=== PATIENT | female | born 1960 | race Caucasian/White ===

== ENCOUNTER 2017-07-17 10:16 | Emergency (ER) | payer BC ==
[~2017-07-17] VITALS: Ht 165.1 cm; Wt 56.8 kg
[~2017-07-17 10:16] MED LIST: AZIT-12 PO; PRED20TA PO; PROAAER10 INH
[2017-07-17 10:17] VITALS: BP 207/98
[2017-07-17] MEDS ORDERED: PRED5SOL10 PO (11:04)
[2017-07-17] MEDS ORDERED: CLON0.5T PO (11:14)
[2017-07-22] MEDS ORDERED: LISI-538 PO (13:56)
[2017-07-22] MEDS ORDERED: XANA0.25 PO (13:56)
== END 2017-07-17 11:31 | disposition home or self-care (01) ==
LOC: M ED 10:16
DX: K13.79 Other lesions of oral mucosa (principal); F41.9 Anxiety disorder, unspecified; F17.200 Nicotine dependence, unspecified, uncomplicated

== ENCOUNTER → 2019-01-30 | Outpatient (REF) | payer BC, MEDICAID ==
[~2019-01-30] MED LIST changes: +CLON0.5T8 PO; +LISI-538 PO; +PRED5SOL10 PO; +XANA0.25 PO
[2019-01-30 13:00] LABS: BASO # 0.1 10^3/uL (0.0-0.2); EOS # 0.1 10^3/uL (0.0-0.50); HEMATOCRIT 44.4 % (36.0-47.0); HEMOGLOBIN 14.8 g/dl (12.0-15.5); LYMPH # 1.7 10^3/uL (1.5-4.5); LYMPH % 29.5 % (24.0-44.0); MEAN CORPUSCULAR HEMOGLOBIN 31.6 pg (27.0-33.0); MEAN CORPUSCULAR HGB CONC 33.3 g/dl (32.0-36.5); MEAN CORPUSCULAR VOLUME 94.7 fl (80.0-96.0); MONO # 0.3 10^3/uL (0.0-0.8); MONO % 5.5 % (0.0-5.0); NEUTROPHILS # 3.7 10^3/uL (1.8-7.7); NEUTROPHILS % 62.8 % (36.0-66.0); PLATELET COUNT, AUTOMATED 259 10^3/uL (150-450); RED BLOOD COUNT 4.69 10^6/uL (4.00-5.40); WHITE BLOOD COUNT 5.9 10^3/uL (4.0-10.0)
[2019-01-30 14:00] LABS: ALBUMIN 3.6 GM/DL (3.2-5.2); ALT/SGPT 35 U/L (12-78); BILIRUBIN,TOTAL 0.5 MG/DL (0.2-1.0); BLOOD UREA NITROGEN 9 MG/DL (7-18); CALCIUM LEVEL 8.5 MG/DL (8.8-10.2); CARBON DIOXIDE LEVEL 26 MEQ/L (21-32); CHLORIDE LEVEL 108 MEQ/L (98-107); CHOLESTEROL LEVEL 225 MG/DL (<200); CHOLESTEROL RISK RATIO 2.122 (<5); CREATININE FOR GFR 0.58 MG/DL (0.55-1.30); GLOMERULAR FILTRATION RATE > 60.0 (>45); GLUCOSE, FASTING 85 MG/DL (70-100); HDL CHOLESTEROL 106 MG/DL (>40); LDL CHOLESTEROL 110 MG/DL (<100); NON-HDL-C 119 MG/DL; POTASSIUM SERUM 4.3 MEQ/L (3.5-5.1); SODIUM LEVEL 139 MEQ/L (136-145); TOTAL 25(OH) VITAMIN D 15.3 NG/ML (30.0-100.0); TOTAL PROTEIN 6.8 GM/DL (6.4-8.2); TRIGLYCERIDES LEVEL 44 MG/DL (<150)
[2019-01-30 14:35] LABS: HEMOGLOBIN A1c 5.1 %
== END ==
LOC: M LAB REF 12:38
PROVIDERS: ATTEND Nurse Practitioner Adult Health
DX: Z13.9 Encounter for screening, unspecified (principal)

== ENCOUNTER → 2020-04-23 | Outpatient (REF) | payer OTHER ==
[~2020-04-23] MED LIST changes: +CLON0.5T2 PO; -CLON0.5T8 PO
[2020-05-22 10:05] LABS: BASO # 0.1 10^3/uL (0.0-0.2); BASO % 0.6 % (0.0-1.0); EOS # 0.1 10^3/uL (0.0-0.5); EOS % 0.6 % (0.0-3.0); HEMATOCRIT 44.5 % (36.0-47.0); HEMOGLOBIN 14.9 g/dl (12.0-15.5); LYMPH # 2.3 10^3/uL (1.5-5.0); LYMPH % 25.9 % (24.0-44.0); MEAN CORPUSCULAR HGB CONC 33.5 g/dl (32.0-36.5); MEAN CORPUSCULAR VOLUME 95.7 fl (80.0-96.0); MONO # 0.5 10^3/uL (0.0-0.8); MONO % 5.6 % (0.0-5.0); NEUTROPHILS # 5.9 10^3/uL (1.5-8.5); NEUTROPHILS % 67.1 % (36.0-66.0); PLATELET COUNT, AUTOMATED 248 10^3/uL (150-450); RED BLOOD COUNT 4.65 10^6/uL (4.00-5.40); WHITE BLOOD COUNT 8.7 10^3/uL (4.0-10.0)
[2020-06-21 15:48] LABS: ALBUMIN 4.3 GM/DL (3.2-5.2); ALT/SGPT 31 U/L (12-78); BILIRUBIN,TOTAL 0.5 MG/DL (0.2-1.0); BLOOD UREA NITROGEN 10 MG/DL (7-18); CALCIUM LEVEL 9.4 MG/DL (8.8-10.2); CARBON DIOXIDE LEVEL 29 MEQ/L (21-32); CHLORIDE LEVEL 107 MEQ/L (98-107); CHOLESTEROL LEVEL 247 MG/DL (<200); CHOLESTEROL RISK RATIO 2.225 (<5); CREATININE FOR GFR 0.77 MG/DL (0.55-1.30); FREE T4 0.99 NG/DL (0.76-1.46); GLOMERULAR FILTRATION RATE > 60.0 (>45); GLUCOSE, FASTING 93 MG/DL (70-100); HDL CHOLESTEROL 111 MG/DL (>40); HEMOGLOBIN A1c 4.8 %; LDL CHOLESTEROL 125 MG/DL (<100); NON-HDL-C 136 MG/DL; POTASSIUM SERUM 4.2 MEQ/L (3.5-5.1); SODIUM LEVEL 141 MEQ/L (136-145); TOTAL PROTEIN 6.9 GM/DL (6.4-8.2); TRIGLYCERIDES LEVEL 57 MG/DL (<150)
== END ==
LOC: M LAB REF 07:41
PROVIDERS: ATTEND Nurse Practitioner Adult Health
DX: Z13.9 Encounter for screening, unspecified (principal)

== ENCOUNTER → 2022-10-15 | Outpatient (REF) | payer OTHER, MEDICAID ==
[~2022-10-15] MED LIST changes: -LISI-538 PO; +LISI20TA33 PO
[2022-10-15 17:00] LABS: CHOLESTEROL RISK RATIO 1.77 (<5); HDL CHOLESTEROL 107.7 MG/DL (>40); LDL CHOLESTEROL 73.9 MG/DL (<100)
== END ==
LOC: M LAB REF 16:20
PROVIDERS: ATTEND Nurse Practitioner Family
DX: E78.00 Pure hypercholesterolemia, unspecified (principal)

== ENCOUNTER → 2023-03-09 | Outpatient (REF) | payer OTHER, MEDICAID ==
[~2023-03-09] MED LIST changes: +PRED15SO24 PO; -PRED5SOL10 PO
[2023-03-09 14:30] LABS: BASO % 0.5 % (0.0-1.0); EOS # 0.1 10^3/uL (0.0-0.5); EOS % 0.6 % (0.0-3.0); HEMATOCRIT 41.2 % (36.0-47.0); HEMOGLOBIN 13.9 g/dl (12.0-15.5); LYMPH # 2.7 10^3/uL (1.5-5.0); LYMPH % 33.1 % (24.0-44.0); MEAN CORPUSCULAR HEMOGLOBIN 31.6 pg (27.0-33.0); MEAN CORPUSCULAR HGB CONC 33.7 g/dl (32.0-36.5); MEAN CORPUSCULAR VOLUME 93.6 fl (80.0-96.0); MONO # 0.3 10^3/uL (0.0-0.8); MONO % 3.9 % (2.0-8.0); NEUTROPHILS # 5.1 10^3/uL (1.5-8.5); NEUTROPHILS % 61.3 % (36.0-66.0); PLATELET COUNT, AUTOMATED 253 10^3/uL (150-450); WHITE BLOOD COUNT 8.2 10^3/uL (4.0-10.0)
[2023-03-09 14:36] LABS: ALKALINE PHOSPHATASE 73 U/L (46-116); ALT/SGPT 28 U/L (7.0-40); AST/SGOT 21 U/L (<34); BILIRUBIN,TOTAL 0.7 MG/DL (0.3-1.2); BLOOD UREA NITROGEN 13 MG/DL (9-23); CALCIUM LEVEL 8.8 MG/DL (8.3-10.6); CARBON DIOXIDE LEVEL 26 MMOL/L (20-31); CHLORIDE LEVEL 106 MMOL/L (98-107); CHOLESTEROL LEVEL 196 MG/DL (<200); CHOLESTEROL RISK RATIO 1.83 (<5); GLOMERULAR FILTRATION RATE > 60.0 (>45); GLUCOSE, FASTING 90 MG/DL (74-106); LDL CHOLESTEROL 78.6 MG/DL (<100); POTASSIUM SERUM 4.5 MMOL/L (3.5-5.1); SODIUM LEVEL 137 MMOL/L (136-145); THYROID STIMULATING HORMONE 1.123 uIU/ML (0.55-4.78); TOTAL PROTEIN 6.3 G/DL (5.7-8.2); TRIGLYCERIDES LEVEL 52 MG/DL (<150)
[2023-03-09 14:37] LABS: TOTAL 25(OH) VITAMIN D 26.9 NG/ML (20.0-100.0)
[2023-03-09 15:43] LABS: HEMOGLOBIN A1c 4.9 % (4.0-6.0)
== END ==
LOC: M LAB REF 12:28
PROVIDERS: ATTEND Nurse Practitioner Family
DX: Z13.228 Encounter for screening for other metabolic disorders (principal)

== ENCOUNTER → 2023-06-07 | Outpatient (REF) | payer OTHER, MEDICAID ==
[2023-06-07 13:42] LABS: BASO # 0.1 10^3/uL (0.0-0.2); BASO % 0.6 % (0.0-1.0); EOS % 0.4 % (0.0-3.0); HEMATOCRIT 42.9 % (36.0-47.0); HEMOGLOBIN 14.4 g/dl (12.0-15.5); LYMPH # 3.2 10^3/uL (1.5-5.0); MEAN CORPUSCULAR HEMOGLOBIN 31.7 pg (27.0-33.0); MEAN CORPUSCULAR HGB CONC 33.6 g/dl (32.0-36.5); MEAN CORPUSCULAR VOLUME 94.5 fl (80.0-96.0); MONO # 0.6 10^3/uL (0.0-0.8); MONO % 6.3 % (2.0-8.0); NEUTROPHILS # 5.5 10^3/uL (1.5-8.5); NEUTROPHILS % 58.4 % (36.0-66.0); PLATELET COUNT, AUTOMATED 259 10^3/uL (150-450); RED BLOOD COUNT 4.54 10^6/uL (4.00-5.40); WHITE BLOOD COUNT 9.4 10^3/uL (4.0-10.0)
[2023-06-07 14:01] LABS: HEMOGLOBIN A1c 4.4 % (4.0-6.0)
[2023-06-07 14:16] LABS: THYROID STIMULATING HORMONE 1.796 uIU/ML (0.55-4.78); TOTAL 25(OH) VITAMIN D 29.6 NG/ML (20.0-100.0)
[2023-06-07 14:24] LABS: ALBUMIN 4.1 G/DL (3.2-5.2); ALKALINE PHOSPHATASE 71 U/L (46-116); ALT/SGPT 32 U/L (7.0-40); AST/SGOT 21 U/L (<34); BILIRUBIN,TOTAL 0.7 MG/DL (0.3-1.2); BLOOD UREA NITROGEN 15 MG/DL (9-23); CALCIUM LEVEL 9.2 MG/DL (8.3-10.6); CARBON DIOXIDE LEVEL 25 MMOL/L (20-31); CHLORIDE LEVEL 106 MMOL/L (98-107); CHOLESTEROL LEVEL 198 MG/DL (<200); CHOLESTEROL RISK RATIO 1.92 (<5); CREATININE FOR GFR 0.65 MG/DL (0.55-1.30); GLOMERULAR FILTRATION RATE > 60.0 (>45); GLUCOSE, FASTING 95 MG/DL (74-106); HDL CHOLESTEROL 102.7 MG/DL (>40); LDL CHOLESTEROL 82.9 MG/DL (<100); NON-HDL-C 95.3 MG/DL; POTASSIUM SERUM 4.6 MMOL/L (3.5-5.1); SODIUM LEVEL 140 MMOL/L (136-145); TOTAL PROTEIN 6.5 G/DL (5.7-8.2); TRIGLYCERIDES LEVEL 62 MG/DL (<150)
== END ==
LOC: M LAB REF 11:41
PROVIDERS: ATTEND Nurse Practitioner Family
DX: Z13.228 Encounter for screening for other metabolic disorders (principal)

== ENCOUNTER → 2024-07-02 | Outpatient (REF) | payer OTHER, MEDICAID ==
[2024-07-02 14:43] LABS: BASO % 0.5 % (0.0-1.0); EOS # 0.1 10^3/uL (0.0-0.5); EOS % 0.9 % (0.0-3.0); HEMATOCRIT 43.6 % (36.0-47.0); HEMOGLOBIN 14.8 g/dl (12.0-15.5); LYMPH % 46.1 % (24.0-44.0); MEAN CORPUSCULAR HEMOGLOBIN 31.6 pg (27.0-33.0); MEAN CORPUSCULAR HGB CONC 33.9 g/dl (32.0-36.5); MEAN CORPUSCULAR VOLUME 93.2 fl (80.0-96.0); MONO # 0.3 10^3/uL (0.0-0.8); MONO % 3.4 % (2.0-8.0); NEUTROPHILS # 4.2 10^3/uL (1.5-8.5); NEUTROPHILS % 48.8 % (36.0-66.0); PLATELET COUNT, AUTOMATED 294 10^3/uL (150-450); RED BLOOD COUNT 4.68 10^6/uL (4.00-5.40); WHITE BLOOD COUNT 8.6 10^3/uL (4.0-10.0)
[2024-07-02 15:10] LABS: HEMOGLOBIN A1c 4.7 % (4.0-6.0)
[2024-07-02 15:16] LABS: ALBUMIN 3.7 G/DL (3.2-5.2); ALKALINE PHOSPHATASE 99 U/L (46-116); ALT/SGPT 20 U/L (7.0-40); AST/SGOT 9 U/L (<34); BILIRUBIN,TOTAL 0.6 MG/DL (0.3-1.2); BLOOD UREA NITROGEN 6 MG/DL (9-23); CALCIUM LEVEL 9.6 MG/DL (8.3-10.6); CARBON DIOXIDE LEVEL 28 MMOL/L (20-31); CHLORIDE LEVEL 102 MMOL/L (98-107); CHOLESTEROL LEVEL 195 MG/DL (<200); CHOLESTEROL RISK RATIO 2.05 (<5); CREATININE FOR GFR 0.44 MG/DL (0.55-1.30); GLOMERULAR FILTRATION RATE > 60.0 (>45); GLUCOSE, FASTING 86 MG/DL (74-106); HDL CHOLESTEROL 94.8 MG/DL (>40); LDL CHOLESTEROL 83.6 MG/DL (<100); MAGNESIUM LEVEL 1.8 MG/DL (1.8-2.4); NON-HDL-C 100.2 MG/DL; POTASSIUM SERUM 4.9 MMOL/L (3.5-5.1); SODIUM LEVEL 132 MMOL/L (136-145); TOTAL PROTEIN 6.6 G/DL (5.7-8.2); TRIGLYCERIDES LEVEL 83 MG/DL (<150)
[2024-07-02 15:19] LABS: THYROID STIMULATING HORMONE 1.147 uIU/ML (0.55-4.78); TOTAL 25(OH) VITAMIN D 23.6 NG/ML (20.0-100.0)
== END ==
LOC: M LAB REF 12:36
PROVIDERS: ATTEND Nurse Practitioner Family
DX: R63.6 Underweight (principal); E55.9 Vitamin D deficiency, unspecified

== ENCOUNTER → 2024-07-25 | Outpatient (REF) | payer OTHER, MEDICAID ==
[2024-07-25 14:48] LABS: ALBUMIN 3.8 G/DL (3.2-5.2); ALKALINE PHOSPHATASE 89 U/L (35-104); ALT/SGPT 37 U/L (7.0-40); AST/SGOT 18 U/L (<34); BILIRUBIN,TOTAL 0.5 MG/DL (0.3-1.2); BLOOD UREA NITROGEN 10 MG/DL (9-23); CALCIUM LEVEL 9.6 MG/DL (8.3-10.6); CARBON DIOXIDE LEVEL 26 MMOL/L (20-31); CHLORIDE LEVEL 102 MMOL/L (98-107); CREATININE FOR GFR 0.56 MG/DL (0.55-1.30); GLOMERULAR FILTRATION RATE > 60.0 (>45); GLUCOSE, FASTING 90 MG/DL (74-106); POTASSIUM SERUM 4.5 MMOL/L (3.5-5.1); SODIUM LEVEL 131 MMOL/L (136-145); TOTAL PROTEIN 6.6 G/DL (5.7-8.2)
== END ==
LOC: M LAB REF 13:37
PROVIDERS: ATTEND Nurse Practitioner Family
DX: R63.6 Underweight (principal)

== ENCOUNTER → 2025-01-14 | Outpatient (REF) | payer OTHER, MEDICAID ==
[2025-01-14 18:26] LABS: ALBUMIN 3.8 G/DL (3.2-5.2); ALKALINE PHOSPHATASE 108 U/L (35-104); ALT/SGPT 26 U/L (7.0-40); AST/SGOT 16 U/L (<34); BILIRUBIN,TOTAL 0.5 MG/DL (0.3-1.2); BLOOD UREA NITROGEN 7 MG/DL (9-23); CALCIUM LEVEL 9.7 MG/DL (8.3-10.6); CARBON DIOXIDE LEVEL 26 MMOL/L (20-31); CHLORIDE LEVEL 91 MMOL/L (98-107); CREATININE FOR GFR 0.47 MG/DL (0.55-1.30); GLOMERULAR FILTRATION RATE > 90.0 (>45); GLUCOSE, FASTING 84 MG/DL (74-106); POTASSIUM SERUM 4.5 MMOL/L (3.5-5.1); SODIUM LEVEL 124 MMOL/L (136-145); TOTAL PROTEIN 6.8 G/DL (5.7-8.2)
== END ==
LOC: M LAB REF 17:28
PROVIDERS: ATTEND Nurse Practitioner Family
DX: E87.1 Hypo-osmolality and hyponatremia (principal)

== ENCOUNTER → 2025-01-18 | Outpatient (CLI) | payer MEDICARE, OTHER ==
[2025-01-18 11:26] LABS: SODIUM,RANDOM URINE 73 MMOL/L
== END ==
LOC: M LAB 09:49
PROVIDERS: ATTEND Nurse Practitioner Family
DX: E87.1 Hypo-osmolality and hyponatremia (principal)

== ENCOUNTER 2025-01-24 18:27 | Observation (INO) | payer MEDICARE, OTHER ==
[~2025-01-24] VITALS: Ht 162.6 cm; Wt 53.2 kg
[~2025-01-24 18:27] MED LIST changes: -AMLO1TAB24 PO; -ATOR1TAB21 PO; -FLUTISP; -LISI40TA4 PO; -TRAZ-186 PO; -VITA200032 PO
[2025-01-24] MEDS ORDERED: VITA200032 PO (18:44)
[2025-01-24] MEDS ORDERED: ATOR1TAB21 PO (18:44)
[2025-01-24] MEDS ORDERED: TRAZ-186 PO (18:44)
[2025-01-24] MEDS ORDERED: LISI40TA4 PO (18:44)
[2025-01-24 20:41] LABS: OSMOLALITY SERUM 252 MOSM/KG (280-301)
[2025-01-24 20:47] LABS: BLOOD UREA NITROGEN 7 MG/DL (9-23); CALCIUM LEVEL 8.8 MG/DL (8.3-10.6); CARBON DIOXIDE LEVEL 26 MMOL/L (20-31); CHLORIDE LEVEL 89 MMOL/L (98-107); CREATININE FOR GFR 0.43 MG/DL (0.55-1.30); GLOMERULAR FILTRATION RATE > 90.0 (>45); GLUCOSE, FASTING 123 MG/DL (74-106); MAGNESIUM LEVEL 1.5 MG/DL (1.8-2.4); PHOSPHORUS LEVEL 4.3 MG/DL (2.4-5.1); POTASSIUM SERUM 4.2 MMOL/L (3.5-5.1); SODIUM LEVEL 121 MMOL/L (136-145)
[2025-01-24 20:49] LABS: SODIUM,RANDOM URINE 22 MMOL/L
[2025-01-24] MEDS ORDERED: NS (Normal Saline) 0.9% 1,000 ML IV SCH (21:35)
[2025-01-24] MEDS ORDERED: CLON0.5T2 PO (22:00)
[2025-01-24] MEDS ORDERED: FLUTISP (22:00)
[2025-01-24] MEDS ORDERED: AMLO1TAB24 PO (22:02)
[2025-01-24] MEDS ORDERED: HOME MED LIST COMPLETE! XX SCH (22:05)
[2025-01-24] MEDS: MAG SULF 1GM/100ML (MAG RUN) 1 GM in IV 1 EA IV ONE (23:08)
[2025-01-25] MEDS ORDERED: LORazepam 2 MG TAB PO PRN (00:10)
[2025-01-25 01:31] VITALS: BP 146/67; TEMP 98.2; O2SAT 94
[2025-01-25] MEDS ORDERED: FLUTICASONE PROP 0.05% NASAL SPRAY 16 GM (FLONASE) PRN ×2 (01:40→01:52)
[2025-01-25] MEDS ORDERED: PILL CUTTER 1 EACH XX PRN (01:55)
[2025-01-25] MEDS: traZODone 50 MG TAB PO PRN (02:11)
[2025-01-25 03:51] VITALS: BP 112/57; TEMP 97.8; O2SAT 97
[2025-01-25 04:00] VITALS: BP 112/57
[2025-01-25 05:20] LABS: HEMATOCRIT 32.1 % (36.0-47.0); HEMOGLOBIN 11.7 g/dl (12.0-15.5); MEAN CORPUSCULAR HEMOGLOBIN 31.6 pg (27.0-33.0); MEAN CORPUSCULAR HGB CONC 36.4 g/dl (32.0-36.5); MEAN CORPUSCULAR VOLUME 86.8 fl (80.0-96.0); PLATELET COUNT, AUTOMATED 283 10^3/uL (150-450); WHITE BLOOD COUNT 7.9 10^3/uL (4.0-10.0)
[2025-01-25 05:42] LABS: BLOOD UREA NITROGEN 7 MG/DL (9-23); CALCIUM LEVEL 8.4 MG/DL (8.3-10.6); CARBON DIOXIDE LEVEL 26 MMOL/L (20-31); CHLORIDE LEVEL 95 MMOL/L (98-107); CHOLESTEROL LEVEL 171 MG/DL (<200); CHOLESTEROL RISK RATIO 1.78 (<5); CREATININE FOR GFR 0.41 MG/DL (0.55-1.30); GLOMERULAR FILTRATION RATE > 90.0 (>45); GLUCOSE, FASTING 99 MG/DL (74-106); LDL CHOLESTEROL 66.8 MG/DL (<100); MAGNESIUM LEVEL 1.8 MG/DL (1.8-2.4); POTASSIUM SERUM 4.3 MMOL/L (3.5-5.1); SODIUM LEVEL 126 MMOL/L (136-145); TRIGLYCERIDES LEVEL 41 MG/DL (<150)
[2025-01-25 08:07] VITALS: BP 143/65; TEMP 98; O2SAT 98
[2025-01-25] MEDS: NICOTINE 7 MG/24 HR TRANSDERMAL TD SCH (08:56)
[2025-01-25 08:58] VITALS: BP 143/65
[2025-01-25] MEDS: FOLIC ACID 1MG TAB PO SCH (08:58)
[2025-01-25] MEDS: amLODIPine 5 MG TAB PO SCH (08:58)
[2025-01-25] MEDS: MULTIVITAMINS/MINERALS THERAP 1 TAB PO SCH (08:58)
[2025-01-25] MEDS: ATORVASTATIN 20 MG TAB PO SCH (08:58)
[2025-01-25] MEDS: THIAMINE 100 MG TAB PO SCH (08:59)
[2025-01-25] MEDS: ENOXAPARIN 40MG/0.4ML SYRINGE (J1650 PER 10MG) SC SCH (08:59)
[2025-01-25] MEDS: clonazePAM 0.5 MG TAB PO PRN (09:16)
[2025-01-25] MEDS ORDERED: RAMELTEON 8 MG TAB (ROZEREM) PO SCH (21:00)
== END 2025-01-25 11:41 | disposition home or self-care (01) ==
LOC: M ED 18:27 → M ED INP 22:01 → M PCU 01-25 01:24
PROVIDERS: ADMIT Family Medicine; ATTEND Family Medicine
DX: E87.1 Hypo-osmolality and hyponatremia (principal); J84.10 Pulmonary fibrosis, unspecified; I10 Essential (primary) hypertension; E78.5 Hyperlipidemia, unspecified; F41.9 Anxiety disorder, unspecified; Z86.16 Personal history of COVID-19; J32.9 Chronic sinusitis, unspecified; J06.9 Acute upper respiratory infection, unspecified; R53.83 Other fatigue; Z20.828 Contact with and (suspected) exposure to other viral communicable diseases; J44.9 Chronic obstructive pulmonary disease, unspecified; J45.909 Unspecified asthma, uncomplicated; D64.9 Anemia, unspecified; F17.210 Nicotine dependence, cigarettes, uncomplicated; F10.90 Alcohol use, unspecified, uncomplicated; Z79.899 Other long term (current) drug therapy
CPT/HCPCS: 36415; 71045; 71250; 80048; 80061; 83735; 83930; 83935; 84100; 84295; 84300; 84443; 85027; 93005; 96372; 96374; 99285; J1650; J3475

== ENCOUNTER → 2025-01-24 | Outpatient (REF) | payer OTHER ==
[~2025-01-24] MED LIST changes: +AMLO1TAB24 PO; +ATOR1TAB21 PO; +FLUTISP; +LISI40TA4 PO; +TRAZ-186 PO; +VITA200032 PO
[2025-01-24 15:44] LABS: ALBUMIN 4.1 G/DL (3.2-5.2); ALKALINE PHOSPHATASE 126 U/L (35-104); ALT/SGPT 48 U/L (7.0-40); AST/SGOT 36 U/L (<34); BILIRUBIN,TOTAL 0.4 MG/DL (0.3-1.2); BLOOD UREA NITROGEN 7 MG/DL (9-23); CALCIUM LEVEL 9.6 MG/DL (8.3-10.6); CARBON DIOXIDE LEVEL 27 MMOL/L (20-31); CHLORIDE LEVEL 87 MMOL/L (98-107); GLOMERULAR FILTRATION RATE > 90.0 (>45); GLUCOSE, FASTING 98 MG/DL (74-106); POTASSIUM SERUM 4.9 MMOL/L (3.5-5.1); SODIUM LEVEL 120 MMOL/L (136-145); TOTAL PROTEIN 7.2 G/DL (5.7-8.2)
== END ==
LOC: M LAB REF 14:23
PROVIDERS: ATTEND Nurse Practitioner Family
DX: E87.1 Hypo-osmolality and hyponatremia (principal)

== ENCOUNTER → 2025-04-29 | Outpatient (REF) | payer OTHER ==
[~2025-04-29] MED LIST changes: +AMLO1TAB24 PO; +ATOR1TAB21 PO; +FLUTISP; +LISI40TA10 PO; +TRAZ-186 PO; +VITA200032 PO
[2025-04-29 15:36] LABS: ALT/SGPT 34 U/L (7.0-40); AST/SGOT 21 U/L (<34); CALCIUM LEVEL 9.5 MG/DL (8.3-10.6); CARBON DIOXIDE LEVEL 26 MMOL/L (20-31); CHLORIDE LEVEL 98 MMOL/L (98-107); CREATININE FOR GFR 0.50 MG/DL (0.55-1.30); GLOMERULAR FILTRATION RATE > 90.0 (>45); POTASSIUM SERUM 4.5 MMOL/L (3.5-5.1); SODIUM LEVEL 132 MMOL/L (136-145)
== END ==
LOC: M LAB REF 14:31
PROVIDERS: ATTEND Student in an Organized Health Care Education/Training Program
DX: E87.1 Hypo-osmolality and hyponatremia (principal)